=== PATIENT | male | born 1965 | race Caucasian/White ===

== ENCOUNTER 2022-03-23 08:24 | Outpatient (CLI) | payer OTHER | END 2022-03-23 08:25 | disposition home or self-care (01) | LOC: MRI 08:24 → BICMRI 08:25 | PROVIDERS: ATTEND Dentist Oral and Maxillofacial Surgery | DX: R25.2 Cramp and spasm (principal) | CPT/HCPCS: 70543 ==

== ENCOUNTER 2022-04-06 09:10 | Outpatient (CLI) | payer OTHER | END 2022-04-06 09:11 | disposition home or self-care (01) | LOC: CT 09:10 | PROVIDERS: ATTEND Dentist Oral and Maxillofacial Surgery | DX: R22.1 Localized swelling, mass and lump, neck (principal); R25.2 Cramp and spasm | CPT/HCPCS: 70491 ==